=== PATIENT | male | born 1960 | race Caucasian/White ===

== ENCOUNTER 2019-12-03 11:00 | Emergency (ER) | payer BC, OTHER ==
[~2019-12-03] VITALS: Ht 175.3 cm; Wt 86.2 kg
[2019-12-03] MEDS ORDERED: FLUORESCEIN SODIUM OPHTH 1 EA STRIP ONE (11:06)
[2019-12-03] MEDS ORDERED: FAMOTIDINE/PF INJ 20 MG/2 ML VIAL IV ONE (11:25)
[2019-12-03] MEDS ORDERED: diphenhydrAMINE HCL 50 MG/ML VIAL ONE (11:25)
[2019-12-03] MEDS ORDERED: methylPREDNISolone SOD SUCC 125 MG/2ML VIAL ONE (11:26)
[2019-12-03] MEDS: FAMOTIDINE/PF INJ 20 MG/2 ML VIAL IV ONE (11:31)
[2019-12-03] MEDS: TETRAcaine 5 ML BOTTLE EACHEYE ONE (11:31)
[2019-12-03] MEDS: diphenhydrAMINE HCL 50 MG/ML VIAL IV ONE (11:31)
[2019-12-03] MEDS: methylPREDNISolone SOD SUCC 125 MG/2ML VIAL IV ONE (11:32)
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
--- NOTE | 2019-12-03 11:36 | NUR ---
PT STATED FEELING BETTER NOW
[2019-12-03] MEDS: MORPHINE SULFATE INJ 2 MG/ML DISP.SYRIN IV ONE (12:01)
[2019-12-03] MEDS ORDERED: MORPHINE SULFATE INJ 4 MG/ML DISP.SYRIN ONE (12:02)
[2019-12-03] MEDS ORDERED: ONDANSETRON HCL/PF 4 MG/2 ML VIAL ONE (12:11)
[2019-12-03] MEDS: ONDANSETRON HCL/PF 4 MG/2 ML VIAL IVP ONE (12:11)
--- NOTE | 2019-12-03 12:14 | NUR ---
5/10 PAIN BIOTH EYES MS 4 MG IVP GIVEN PER MD VSS ACCU CK 234 PT HAS INSULIN PUMP GIVEN HIMSELF CONT TO MONITOR
[2019-12-03 12:47] VITALS: BP 148/80
--- NOTE | 2019-12-03 12:48 | NUR ---
PT. VERBALIZED UNDERSTANDING OF AFTERCARE INSTRUCTIONS.IV removed. Catheter intact and site benign. Pressure and 4x4 applied to site. No bleeding noted.Patient discharged to home in stable condition. Written and verbal after care instructions given. Patient verbalizes understanding of instruction.
== END 2019-12-03 12:50 | disposition home or self-care (01) ==
LOC: ER 11:02
DX: H10.213 Acute toxic conjunctivitis, bilateral (principal); I10 Essential (primary) hypertension
CPT/HCPCS: 82962; 96374; 96375; 99284; J1200; J2270; J2405; J2930; J3490; J7030

== ENCOUNTER 2020-07-10 09:19 | Emergency (ER) | payer OTHER ==
[~2020-07-10] VITALS: Ht 188 cm; Wt 77.1 kg
--- NOTE | 2020-07-10 09:30 | NUR ---
pt came to er from home. per pt states he accidentally took double dose AM medications x 1 hour ago of bystolic 20mg, benicar 40mg and crestor 20 mg. v/s stable. no changes in loc. pt ambulatory. no hypotension and bradycardia. awaiting for md gomez
--- NOTE | 2020-07-10 09:42 | NUR ---
called poison control. spoke to krupa for recommendation as ordered by . with recommendation to monitor pt for 3-4hours for ase of Bystolic. and will call back for an update. MD benoit. pt made aware and verbalized understanding
--- NOTE | 2020-07-10 11:38 | NUR ---
PT IN BED ALERT AND ORIENTED X4. NAD. NO CHEST PAIN. NO DIZZINESS. V/S STABLE. ALL NEEDS ATTENDED, CONTINUE POC
--- NOTE | 2020-07-10 12:24 | NUR ---
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
--- NOTE | 2020-07-10 12:26 | NUR ---
Patient discharged to home in stable condition. Written and verbal after care instructions given. Patient verbalizes understanding of instruction. Pt ambulatory with a steady gait
[2020-07-10 12:27] VITALS: BP 138/75
== END 2020-07-10 12:27 | disposition home or self-care (01) ==
LOC: ER 09:24
DX: T44.7X1A Poisoning by beta-adrenoreceptor antagonists, accidental (unintentional), initial encounter (principal); T46.5X1A Poisoning by other antihypertensive drugs, accidental (unintentional), initial encounter; T46.6X1A Poisoning by antihyperlipidemic and antiarteriosclerotic drugs, accidental (unintentional), initial encounter; I10 Essential (primary) hypertension; Y92.89 Other specified places as the place of occurrence of the external cause

== ENCOUNTER 2022-12-11 18:58 | Emergency (ER) | payer BC, OTHER ==
[~2022-12-11] VITALS: Ht 188 cm; Wt 86.2 kg
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
--- NOTE | 2022-12-11 19:25 | NUR ---
SEEN BY ARABELLA ARITA AT BEDSIDE
--- NOTE | 2022-12-11 19:28 | NUR ---
EKG DONE AT BEDSIDE
[2022-12-11] MEDS ORDERED: IV NS 0.9% 1,000 ML BAG IV ONE (19:30)
--- NOTE | 2022-12-11 19:30 | NUR ---
VENDING MANAGER AT BEDSIDE
--- NOTE | 2022-12-11 19:42 | NUR ---
ASSISTANT MANAGER TRAINEE AT BEDSIDE
--- NOTE | 2022-12-11 19:46 | NUR ---
S/W EMILY, REQUESTED TO CALL HER WHEN OK TO COME IN, .
[2022-12-11 20:20] LABS: BASOPHILS % (AUTO) 0.5 % (0.0-2.0); HEMATOCRIT 47 % (39-51); HEMOGLOBIN 15.9 g/dL (13.5-17.5); LYMPHOCYTES # (AUTO) 1.4 K/uL (0.8-4.8); LYMPHOCYTES % (AUTO) 17.3 % (20.0-44.0); MEAN CORPUSCULAR HGB CONC 34 g/dl (31.0-36.0); MEAN CORPUSCULAR VOLUME 90 fL (80-96); MONOCYTES # (AUTO) 0.8 K/uL (0.1-1.30); MONOCYTES % (AUTO) 9.5 % (2.0-12.0); NEUTROPHILS # (AUTO) 5.9 K/uL (1.8-8.9); NEUTROPHILS % (AUTO) 71.7 % (43.0-81.0); PLATELET COUNT (AUTO) 168 K/uL (150-450); RED BLOOD CELL COUNT(AUTO) 5.26 MIL/uL (4.5-6.0); WHITE BLOOD COUNT (AUTO) 8.2 K/uL (4.3-11.0)
[2022-12-11 20:27] LABS: CALCIUM, SERUM 8.7 mg/dL (8.5-10.1); CARBON DIOXIDE 29 mmol/L (21-32); CHLORIDE 107 mmol/L (98-107); CREATININE 1.4 mg/dL (0.6-1.3); GLUCOSE 157 mg/dL (74-106); POTASSIUM 5.2 mmol/L (3.5-5.1); SODIUM SERUM 142 mmol/L (136-145); UREA NITROGEN, BLOOD 23 mg/dL (7-18)
--- NOTE | 2022-12-11 21:10 | NUR ---
Patient discharged to home in stable condition. Written and verbal after care instructions given. Patient verbalizes understanding of instruction.
--- NOTE | 2022-12-11 21:10 | NUR ---
IV JENNY REMOVED
[2022-12-11 21:12] VITALS: BP 104/62
== END 2022-12-11 21:12 | disposition home or self-care (01) ==
LOC: ER 19:06
DX: R55 Syncope and collapse (principal); I10 Essential (primary) hypertension; E10.9 Type 1 diabetes mellitus without complications; Z79.4 Long term (current) use of insulin
CPT/HCPCS: 99285; 71045; 93005; 85025; 80048; 36415; 84484; J7030

== ENCOUNTER 2023-07-18 13:54 | Emergency (ER) | payer BC ==
[~2023-07-18] VITALS: Ht 185.4 cm; Wt 86.2 kg
[2023-07-18 14:56] LABS: BASOPHILS # (AUTO) 0.1 K/uL (0.0-0.2); BASOPHILS % (AUTO) 0.6 % (0.0-2.0); EOSINOPHILS # (AUTO) 0.1 K/uL (0.0-0.7); EOSINOPHILS % (AUTO) 1.1 % (0.0-6.0); HEMATOCRIT 52 % (39-51); HEMOGLOBIN 17.9 g/dL (13.5-17.5); LYMPHOCYTES # (AUTO) 1.1 K/uL (0.8-4.8); LYMPHOCYTES % (AUTO) 12.9 % (20.0-44.0); MEAN CORPUSCULAR HEMOGLOBIN 31 PG (26.0-33.0); MEAN CORPUSCULAR HGB CONC 34 g/dl (31.0-36.0); MEAN CORPUSCULAR VOLUME 90 fL (80-96); MONOCYTES # (AUTO) 0.6 K/uL (0.1-1.30); MONOCYTES % (AUTO) 7.8 % (2.0-12.0); NEUTROPHILS # (AUTO) 6.5 K/uL (1.8-8.9); NEUTROPHILS % (AUTO) 77.6 % (43.0-81.0); PLATELET COUNT (AUTO) 191 K/uL (150-450); RED BLOOD CELL COUNT(AUTO) 5.83 MIL/uL (4.5-6.0); RED CELL DISTRIBUTION WIDTH 14.3 % (11.5-15.0); WHITE BLOOD COUNT (AUTO) 8.3 K/uL (4.3-11.0)
[2023-07-18 15:19] LABS: ALANINE AMINOTRANSFERASE 33 U/L (12-78); ALBUMIN 4.1 g/dL (3.4-5.0); ALKALINE PHOSPHATASE 78 U/L (46-116); BILIRUBIN,DIRECT 0.1 mg/dL (0.0-0.2); BILIRUBIN,TOTAL 0.6 mg/dL (0.2-1.0); CALCIUM, SERUM 9.5 mg/dL (8.5-10.1); CARBON DIOXIDE 26 mmol/L (21-32); CHLORIDE 107 mmol/L (98-107); CREATININE 1.2 mg/dL (0.6-1.3); GLUCOSE 78 mg/dL (74-106); POTASSIUM 4.6 mmol/L (3.5-5.1); SODIUM SERUM 144 mmol/L (136-145); TOTAL PROTEIN, SERUM 7.6 g/dL (6.4-8.2); UREA NITROGEN, BLOOD 23 mg/dL (7-18)
[2023-07-18 15:47] LABS: ASPARTATE AMINOTRANSFERASE 27 U/L (15-37)
[2023-07-18] MEDS ORDERED: IV NS 0.9% 1,000 ML BAG IV ONE (16:00)
[2023-07-18 17:01] VITALS: BP 132/72; TEMP 98; O2SAT 100
[2023-07-18 19:14] LABS: ANISOCYTOSIS 1+; EOSINOPHILS % (MANUAL) 1 % (0-4); LYMPHOCYTES % (MANUAL) 14 % (16-48); MONOCYTES % (MANUAL) 4 % (0-11.0); NEUTROPHILS % (MANUAL) 81 (42-76); PLATELET ESTIMATE ADEQUATE
== END 2023-07-18 17:01 | disposition home or self-care (01) ==
LOC: ER 14:11
DX: R42 Dizziness and giddiness (principal); I10 Essential (primary) hypertension; E11.9 Type 2 diabetes mellitus without complications
CPT/HCPCS: 99285; 96360; 71045; 93005; 85025; 80048; 80076; 36415; 84484; 85007; J7030